=== PATIENT | female | born 1945 ===

== ENCOUNTER → 2019-06-01 05:34 | Day surgery (SDC) | payer BC ==
[~2019-06-01 05:34] MED LIST: Acetaminophen TAB* 325 MG PO PRN; Buffered Lidocaine 1% SYRIN* 1 ML/SYRINGE INTRADERM ONE; Dexamethasone IV* 4 MG/ML 1 ML (4 MG) IV SLOW PU ONE; Dexamethasone IV* 4 MG/ML 1 ML (4 MG) ONE; DiMENhydriNATE IV* 50 MG/ML VIAL IV PUSH PRN; EPHEDrine (Pressors)* 50 MG/ML VIAL ONE; Famotidine IV* 10 MG/ML 2 ML (20 mg) IV ONE; Famotidine IV* 10 MG/ML 2 ML (20 mg) ONE; HYDROcodone/ACETAMIN 5-325 MG* 1 TAB PO PRN; Ketorolac INJ* 30 MG/ML 1 ML VIAL ONE; Lactated Ringers 1000 ML Bag* 1,000 ML IV SCH; Lidocaine 1% INJ* 10 MG/ML 30 ML SDV ONE; Lidocaine 2% PF * 5 ML VIAL ONE; Naloxone* 0.4 MG/ML 1 ML VIAL IV PRN; Ondansetron INJ* 2 MG/ML VIAL ONE; Propofol* 10 MG/ML 20 ML BTL ONE; Silver Nitrate/Potassium Nitr* 1 EA STICK ONE; ceFOXitin 2 GM IVPREMIX* 2 GM/50 ML BAG ONE; fentaNYL* 50 MCG/ML 2 ML VIAL (100 MCG VIAL) IV PRN; fentaNYL* 50 MCG/ML 2 ML VIAL (100 MCG VIAL) ONE; oxyCODONE TAB* 5 MG TAB PO PRN
[2019-06-01 07:12] LABS: ABS Basophils 0.1 10^3/ul (0-0.2); ABS Eosinophils 0.1 10^3/ul (0-0.6); ABS Lymphocytes 1.8 10^3/ul (1.0-4.8); ABS Monocytes 0.7 10^3/ul (0-0.8); ABS Neutrophils 3.6 10^3/ul (1.5-7.7); Eosinophil % 1.6 %; Hematocrit 44 % (35-47); Lymphocyte % 29.4 %; Mean Corpuscular HGB Conc 34 g/dL (31-36); Mean Corpuscular Hemoglobin 33 pg (27-31); Mean Corpuscular Volume 96 fL (80-97); Mean Platelet Volume 8.9 fL (7.4-10.4); Platelet Count 217 10^3/uL (150-450); Red Blood Count 4.56 10^6 /uL (3.70-4.87); Red Cell Distribution Width 14 % (10-15); White Blood Count 6.3 10^3/uL (3.5-10.8)
[2019-06-01 09:55] VITALS: BP 144/81
--- NOTE | 2019-06-01 11:50 | OP ---
ATE OF OPERATION: 06/01/19 - [facility] DATE OF : 45 SURGEON: Dr. Tash Queen. SWINE EXTENSION FIELD SPECIALIST: None. ANESTHESIOLOGIST: Dr. Navas. ANESTHESIA: General endotracheal. PRE-OP DIAGNOSIS: Postmenopausal bleeding. POST-OP DIAGNOSES: Postmenopausal bleeding and large endometrial polyp. OPERATIVE PROCEDURE: Dilation and hysteroscopic resection of endometrial polyp. FLUIDS: 1900 cc of crystalloid. URINE OUTPUT: 100 cc of clear yellow urine. Deficit 115 cc. COMPLICATIONS: None apparent. DISPOSITION: Stable to recovery room. FINDINGS: Revealed a large approximately 3-cm endometrial polyp. Both tubal ostia seen after removal of the endometrial polyp. Normal-appearing cervix, normal- appearing vagina. DESCRIPTION OF PROCEDURE: The patient was placed in dorsal lithotomy position after undergoing general anesthesia. The legs were placed in universal Cordell stirrups. The perineum and vagina were prepped and draped in a sterile standard fashion. The patient was identified with universal protocol for correct procedure, position, and patient. Self-cath was inserted for drainage of clear yellow urine 100 cc. Self-cath was removed. A small Gregorio speculum was then inserted. The cervix was grasped from the anterior lip and dilated with #5 Hegar dilator. A MyoSure hysteroscope was then inserted with clear visualization of this large endometrial polyp. The resection was then begun with the LITE MyoSure, unable to finish given the size and calcifications of the endometrial polyp and converted to the REACH MyoSure, resection was completed with good visualization of the uterine cavity and complete resection. Hysteroscope was then removed. Single-tooth tenaculum removed. Sterile speculum removed. All sponge, needle, instrument, blade counts were correct throughout the case. The patient tolerated this procedure well, and went to the recovery room in stable condition. [id number] #: [id number] MTDD
== END | disposition home or self-care (01) ==
LOC: OR 05:34
PROVIDERS: ATTEND Obstetrics & Gynecology
DX: N95.0 Postmenopausal bleeding (principal); N84.0 Polyp of corpus uteri; K21.9 Gastro-esophageal reflux disease without esophagitis
CPT/HCPCS: 36415; 85025; 86850; 86900; 86901; 88305; A9270-GY; J0694; J1100; J1885; J2405; J2704; J3010